=== PATIENT | male | born 1970 | race Caucasian/White ===

== ENCOUNTER → 2016-09-16 | Day surgery (SDC) | payer OTHER ==
[~2016-09-16] VITALS: Ht 180.3 cm; Wt 90.4 kg
[2016-09-16] VITALS (14 sets, daily range): BP systolic 119–135; BP diastolic 73–85; PULSE 80–98; RESP 10–20; O2SAT 96–100
[~2016-09-16] MED LIST: ALBU8.5H2 INHALATION; Acetaminophen IV 1,000 MG in IV Premix 1 EACH IV PRN; Atropine 0.4 mg/mL Inj IVPUSH PRN; CeFAZolin 2 Gm/50 mL D5W IV Premix IV ONE; CeFAZolin Inj 2 gm / 50mL D5W IV ONE; Dexamethasone 4 mg/mL Inj IVPUSH PRN; Dexamethasone 4 mg/mL Inj ONE; EPHEDrine Sulfate 50 mg/mL Inj IVPUSH PRN; FLUT12AE8 IH; Labetalol 5 mg/mL 4 mL Inj IV PRN; Lactated Ringer's 1,000 ML IV ONE; Lactated Ringer's 1,000 ML IV SCH; Lactated Ringer's 500 ML IV PRN; MetoCLOpramide 5 mg/mL 2 mL Inj IVPUSH PRN; Ondansetron 2 mg/mL 2 mL Inj IVPUSH PRN; Ondansetron 2 mg/mL 2 mL Inj ONE; Phenylephrine 10,000 mCg/mL Inj IVPUSH PRN; Propofol 10,000 mCg/mL 20 mL Inj ONE; Ropivacaine-PF 0.5% 30 mL Inj INFILTRATE ONE; fentaNYL-PF 50 mCg/mL 2 mL Inj ONE; hydrALAZINE 20 mg/mL Inj IVPUSH PRN; hydrOXYzine Pamoate 25 mg Capsule PO PRN; oxyCODONE-Acetamin 5-325 mg Tablet PO PRN
--- NOTE | 2016-09-16 06:36 | PCM.HPANE ---
Patient Data Surgeon Admitting Provider: Attending Provider:Blake Riddle DO Primary Care Physician:Tosha Stevenson DO Other Provider:Charisma Abdul Anesthesia Reason for Visit Right Knee Acl Tear Ht/WT & BMI Height (Feet): 5 Height (Inches): 11 Weight (Kilograms): 90.44 Body Mass Index 27.00 Allergies Coded Allergies: No Known Allergies (Verified Allergy, Unknown, 09/21/15) Past Anesthesia History Anesthesia History: Denies:: Abnormal Airway, Anesthesia Reactions, Difficult Intubation, Fam Anesthesia Reaction, Fam Malignant Hypertherm, Malignant Hyperthermia Diabetes History Hx Diabetes?: No MRSA MRSA: No Medications Hypertension Medication: No Home Meds Incl Beta Caro: No Reported Medications Albuterol HFA (Proair HFA)8.5 Gm Hfa.aer.ad2 Puffs INHALATION Q4H PRN For Shortness of Breath #1 INHALER 09/11/16 Fluticasone Propionate (Flovent HFA 110 mcg)12 Gm Aer.w.adap2 Puffs IH BID #12 GM Ref 0 09/11/16 Discontinued Reported Medications Omeprazole 20 Mg Capsule.dr20 Mg PO BID Ref 0 04/26/15 History History of ENT Problems?: Yes HEENT History: Positive for:: TMJ (no nightguard) Denies:: Abnormal Airway Cataracts Difficult Intubation Dysphagia Glaucoma Hearing Problem Sinus Problem Teeth Condition: Broken Teeth Hx of Heart Problems?: Yes Cardiovascular History: Positive for:: Chest Pain Denies:: AICD Abdominal Aortic Aneurism Atrial Fibrillation Cardiac Surgery Edema Heart Murmur Hypertension Irregular Heartbeat Pacemaker Valvular Heart Disease Hx of Respiratory Problem?: Yes Respiratory History: Positive for:: Use of Inhalers / NEBS Denies:: COPD Emphysema Oxygen Administration Pneumonia Tuberculosis Use of C-PAP Machine Hx Neurologic Problems?: Yes Neurological History: Positive for:: Headaches (a lot ) Denies:: CVA Multiple Sclerosis Parkinson's Disease Seizures (Twitch a lot ) Hx of GI Problems?: Yes Gastrointestinal History: Positive for:: Gastroesphageal Reflux Rectal Bleeding (hemorrhoids) Denies:: Cirrhosis Diverticulitis Gall Bladder Disease Hepatitis Hiatal Hernia Hx of Problems?: No Genitourinary History: Denies:: Kidney Stones Urinary Tract Infection Other Pertinent History: tube to kidney 'wasn't circulating well" Male Hx: Denies:: Prostate Problems Scrotal Mass Testicular Surgery Skin History: Denies:: History Skin Disorders? Pressure Ulcers Hx Musculoskeletal Problems?: Yes Musculoskeletal History: Positive for:: Back Injury (" all screwed up") Musculoskeletal Trauma (right knee current admission problem- prior repair) Denies:: Fibromyalgia Joint Replacement Myasthenia Gravis Osteoarthritis Rheumatoid Arthritis Psycho Social History: Denies:: Anxiety Hx Depression Hx Surgeries?: Yes (Hand surgery, knee surgery) Hx Any Other Health Problems?: Yes Other History: Denies:: Cancer Thyroid Disease History Blood Transfusions: Positive for:: Accept Blood Products? Denies:: Blood Transfusions Hx Diabetes: No Hx Alcohol Use: NoHx Substance Use: Yes (marijuana- randomly, emr states prior meth use) Smoking Status: Current Every Day Smoker Light Tobacco Smoker Have You Smoked inLast 12 mo: Yes Stop/Bang S-Snoring: Do You Snore Loudly: No T-Tired: feel tired, fatigued: Yes O-Obsered: Observed not breath: Yes P-Blood Pressure: treated: No B- Body Mass Index > 35 kg/m2: No A- Age over 50: No N- Neck Large Circumference: No G- Gender Male: Yes YINKA Total Score: 3 YINKA Risk Assessment: Low Risk, <3 Yes Risk Assessment Category Category 1A: Patient has history of documented sleep apnea, and HAS NOT received any narcotic, sedative or anesthesia administration during this stay. Category 1B: Patient has history of documented sleep apnea, and HAS received any narcotic , sedative or anesthesia administration during this stay Category 2: Patient has SUSPECTED Obstructive Sleep Apnea, and HAS received any narcotic , sedative or anesthesia administration during this stay. Category 3: Patient has SUSPECTED Obstructive Sleep Apnea and HAS NOT received narcotic, sedative or anesthesia administration during this stay. Category 4: Outpatient in Procedural Areas with known sleep apnea or who screen positive for High Risk via the STOP/BANG questionnaire. Exam Exam General Appearance: Alert, Oriented X3, Cooperative, No Acute Distress HEENT/AIRWAY: MP 2 Lungs: Clear to Auscultation, Normal Air Movement Heart: Exam Unremarkable, Regular Rate/Rhythm, No Murmurs/Rubs/Gallops Plan Impression Patient chart reviewed, patient interviewed and anesthestic plan with risks, benefits, and alternatives discussed, and informed consent obtained. ASA Physical Status: ASA2 Mod Systemic Disease Anesthetic Plan: GA, Regional Block Bene/Risks/Altern/Consents: Yes HP Complete Prior to Induction: Yes Jay Bolanos MD Sep 16, 2016 06:36
[2016-09-16] MEDS: HYDROmorphone 1 mg/mL Inj IVPUSH PRN ×2 (13:00→13:17)
[2016-09-16] MEDS: fentaNYL-PF 50 mCg/mL 2 mL Inj IVPUSH PRN ×2 (13:11→13:29)
--- NOTE | 2016-09-16 15:38 | PCM.ANEP1 ---
Post Anesthesia Phase 1 PACU Phase 1 Assessment Vital Signs Vital Signs Date Time Temp Pulse Resp B/P Pulse Ox O2 Delivery O2 Flow Rate FiO2 09/16/16 14:11 36.6 91 16 122/73 98 Room Air 09/16/16 13:30 91 14 127/81 98 Room Air 09/16/16 13:25 90 16 126/79 98 Room Air 09/16/16 13:15 85 10 119/78 98 Room Air 09/16/16 13:10 88 13 120/84 98 Room Air 09/16/16 13:00 36.4 93 13 135/81 96 Room Air 09/16/16 12:40 80 20 134/85 96 Room Air 09/16/16 12:35 36.5 87 15 124/80 99 Room Air 09/16/16 12:30 88 13 132/84 97 Room Air 09/16/16 12:25 83 13 125/77 98 Room Air 09/16/16 12:20 80 13 128/80 100 Simple Mask 8 09/16/16 12:15 97 12 120/80 100 Simple Mask 8 09/16/16 12:12 36.5 98 12 125/77 100 Simple Mask 8 09/16/16 08:54 35.7 95 18 120/73 97 Room Air Anesthetic Administered: GA Level of Alertness: Awake, talking GAYLE's with Equal Strength: Yes Pain: No Nausea or Vomiting: No Oxygen Delivery: Simple Mask Lungs: Clear to Auscultation, Normal Air Movement Jay Bolanos MD Sep 16, 2016 15:38
--- NOTE | 2016-09-16 15:38 | PCM.ANEP2 ---
Post Anesthesia Evaluation ASA/CMS Post Anesthesia VS in Patient's Normal Range?: Yes Resp Stable; Airway Patent?: Yes CV Function & Hydration Stable: Yes Mental Status Recovered?: Yes Pain control Satisfactory?: Yes N/V Control Satisfactory?: Yes Jay Bolanos MD Sep 16, 2016 15:38
--- NOTE | 2016-09-16 23:44 | OP ---
[address] [address] OPERATIVE REPORT PATIENT: JUVENCIO ESPINAL : 1970 MR#: [id number] ADMIT: 09/16/2016 JOB ID: [id number] DATE OF SURGERY: 09/16/2016 PREOPERATIVE DIAGNOSIS(ES): Right knee failed anterior cruciate ligament reconstruction with torn medial meniscus. POSTOPERATIVE DIAGNOSIS(ES): Right knee failed anterior cruciate ligament reconstruction with torn medial meniscus. PROCEDURE: Right knee arthroscopy with partial medial meniscectomy and arthroscopic revision anterior cruciate ligament reconstruction. SURGEON: Blake Riddle DO. WEIGHT RECORDER: Amy Quigley PA-C. INDICATIONS: The patient is a 46-year-old male with a right knee ACL tear after previous ACL reconstruction with symptomatic instability. We discussed treatment options for this and he wished to proceed with an ACL reconstruction having failed conservative measures. We discussed the risks, benefits, and possible complications of surgery including, but not limited to, injury to nerves and vessels, infection, bleeding, incomplete relief of symptoms, stiffness, need for additional procedures. The patient had good understanding. All questions were answered and he wished to proceed. PROCEDURE IN DETAIL: The patient was brought to the operating room. He was given a preoperative antibiotic and general anesthetic. The right lower extremity was sterilely prepped and draped and a tourniquet was used for hemostasis. An incision was made over the medial and lateral joint line and the arthroscope was placed into the knee. Inspection was undertaken. He was found to have a tear in the posterior horn medial meniscus. This was resected back to a stable base with a combination of biters and rishabh. His ACL was found to be disrupted and incompetent. Fortunately, he had a previous [id number]-[id number]-quuc graft and so his footprint, I did have some bone in it. The old graft material was cleared from the area using a VAPR trobe and I also did a notchplasty as he did have some notch stenosis. Next, graft was prepared on the back table with the 10 mm cadaver graft, whipstitched at either end and the ACL reconstruction was performed. I used a Patel guide and placed the tibial tunnel more posterior on the tibia at about the junction of the anterior 75%, posterior 25% about three fingerbreadths below the level of the joint line and placed it into the center of the anatomic ACL footprint on the tibia. Over-reamed this with a 10 mm reamer and then scoped the tunnel to ensure that it had good bone all the way around, which it did. The previous tunnel appeared to be quite vertical on both the tibia and the femur. Next, the femoral tunnel was drilled. We use the FlipCutter guide and moved to a 100 degree distance. Placed the tunnel low at about the two o'clock position in order to avoid previous tunnel impingement. An incision was made over the lateral femur and the guide was placed down onto bone. The FlipCutter was inserted, flipped and drilled. We made a 25 mm tunnel in a 35 mm overall length of the bone tunnel in the femur. The graft was placed over the implant and marked. This was then fished up through the two tunnels using a retrieving suture. After the ACL TightRope was deployed against the lateral cortex I pulled back on the graft, had excellent fixation on the femur, cycled the knee 25 times, had excellent fixation. The graft was sucked up into the tunnel of the femur having excellent fixation. This was again cycled and the knee was then held in about 10 degrees of flexion and titanium interference screw was used distally. A 30 mm screw was chosen, had excellent fixation, and the excess graft material was removed. The knee was scoped again and the graft appeared to be in excellent position with no residual laxity in the ACL. The wounds were closed with interrupted nylon to close the scope portals. The tibial incision area was closed with 0 Vicryl to close the deep fascia, 2-0 to close the subcu and running subcuticular Monocryl. Naropin was added as an adjunct local anesthetic. Sterile dressings were applied. Patient tolerated the procedure well. Blood loss was minimal. POSTOPERATIVE PROTOCOL: Have the patient maintain his hinged knee brace locked in full extension, toe-touch weightbearing until such time as he is able to straight leg raise and he can open at 0 to 90. Follow up in two weeks for recheck. Encouraged the patient to discontinue smoking. He was given a prescription for Percocet for pain. EYAL
== END | disposition home or self-care (01) ==
LOC: SAS 08:27
PROVIDERS: ATTEND Orthopaedic Surgery
DX: T84.410A Breakdown (mechanical) of muscle and tendon graft, initial encounter (principal); S83.511S Sprain of anterior cruciate ligament of right knee, sequela; M23.221 Derangement of posterior horn of medial meniscus due to old tear or injury, right knee; F17.210 Nicotine dependence, cigarettes, uncomplicated
CPT/HCPCS: 29881; 29888; 76942; 97530; C1713; C1762; J0690; J1100; J1170; J2250; J2270; J2405; J2795; J3010; J7120; Q0177